=== PATIENT | male | born 1950 | race Two or more races ===

== ENCOUNTER 2025-01-29 14:28 | Outpatient (CLI) | payer OTHER | END 2025-01-29 14:31 | disposition home or self-care (01) | LOC: RAD 14:28 | DX: M25.571 Pain in right ankle and joints of right foot (principal) ==

== ENCOUNTER 2025-05-19 12:24 | Outpatient (CLI) | payer OTHER | END 2025-05-19 12:30 | disposition home or self-care (01) | LOC: TOM 12:24 | DX: C06.9 Malignant neoplasm of mouth, unspecified (principal); C08.9 Malignant neoplasm of major salivary gland, unspecified | CPT/HCPCS: 70488; Q9965 ==